=== PATIENT | female | born 1945 | race Caucasian/White ===

== ENCOUNTER 2017-02-11 08:16 | Inpatient (IN) | payer OTHER ==
[~2017-02-11] VITALS: Ht 153.7 cm; Wt 90.7 kg
[2017-02-11] MEDS ORDERED: LEVEMIR SC (08:53)
[2017-02-11] MEDS ORDERED: GLIM4TAB PO (08:53)
[2017-02-11] MEDS ORDERED: METF-316 PO (08:53)
[2017-02-11] MEDS ORDERED: SIMV40TA96 PO (08:53)
[2017-02-11] MEDS ORDERED: GABA-339 PO (08:56)
[2017-02-11] MEDS ORDERED: DULO60CA PO ×2 (08:56→08:58)
[2017-02-11] MEDS ORDERED: LISI-275 PO (08:56)
[2017-02-11] MEDS ORDERED: FURO40TA PO (08:56)
[2017-02-11] MEDS ORDERED: MIRA25TA PO (08:56)
[2017-02-11] MEDS ORDERED: ACE3T PO (08:56)
[2017-02-11] MEDS ORDERED: POTA10TA51 PO (08:56)
[2017-02-11] MEDS ORDERED: RIZA10TA24 PO (08:58)
[2017-02-11] MEDS ORDERED: TOPI50TA53 PO (08:58)
[2017-02-11] MEDS ORDERED: ASPI-231 PO (08:59)
[2017-02-11] MEDS ORDERED: ANAS1TAB6 PO (08:59)
[2017-02-11] MEDS ORDERED: LATA0.0015 EACHEYE (08:59)
[2017-02-11] MEDS ORDERED: SODIUM CHLORIDE 0.9% 1,000 ML IV ONE (09:00)
[2017-02-11] MEDS ORDERED: ONDANSETRON HCL 4 MG/2 ML VIAL ONE (09:32)
[2017-02-11 09:41] LABS: Basophils # (auto) 0 uL; Basophils % (auto) 0.2 % (0.0-2.0); Eosinophils # (auto) 0.1 uL; Eosinophils % (auto) 0.6 % (0.0-7.0); Hematocrit 37.1 % (36.0-46.0); Hemoglobin 12.3 g/dL (12.2-16.2); Lymphocytes # (auto) 2.5 uL; Lymphocytes % (auto) 20.8 % (10.0-50.0); Mean Corpuscular Hemoglobin 31.4 pg (28.0-32.0); Mean Corpuscular Hgb Conc. 33.1 g/dL (32.0-36.0); Mean Corpuscular Volume 94.9 fL (80.0-100.0); Mean Platelet Volume 7.8 fL (7.4-10.4); Monocytes # (auto) 0.6 uL; Monocytes % (auto) 4.6 % (0.0-12.0); Neutrophils % (auto) 73.8 % (37.0-80.0); Platelet Count (auto) 307 10^3/uL (140-450); Red Cell Distribution Width 15.8 % (11.6-16.0); White Blood Cell 12.2 10^3/uL (4.4-10.8)
[2017-02-11] MEDS ORDERED: MORPHINE SULFATE 4 MG/ML SYRG IV ONE (09:45)
[2017-02-11 09:52] LABS: INR 0.95 (0.9-1.15); Partial Thromboplastin Time 23.1 sec (22.64-33.71); Prothrombin Time 10.4 sec (9.37-12.3)
[2017-02-11] MEDS ORDERED: ONDANSETRON HCL 4 MG/2 ML VIAL IV ONE (10:00)
[2017-02-11 10:08] LABS: Albumin 2.8 g/dL (3.4-5.0); Alkaline Phosphatase 73 U/L (45-117); Anion Gap 9 (5-15); Aspartate Aminotransferase 28 U/L (15-37); BUN/Creatinine Ratio 11.9; Bilirubin, Total 0.3 mg/dL (0.2-1.0); Blood Urea Nitrogen 13 mg/dL (7-18); Calcium 8.1 mg/dL (8.5-10.1); Carbon Dioxide 23 mmol/L (21-32); Chloride 116 mmol/L (98-107); GFR African American 63 mL/min; GFR Non-African American 52 mL/min; Potassium 3.1 mmol/L (3.5-5.1); Sodium 148 mmol/L (136-145); Total Protein 6.4 g/dL (6.4-8.2)
[2017-02-11 10:12] LABS: Glucose 48 mg/dL (74-106)
[2017-02-11 10:33] LABS: B-Type Natriuretic Peptide 90.32 pg/mL (0-100)
[2017-02-11 10:34] LABS: Temperature: 24.6 C (20.0-25.0)
[2017-02-11] MEDS ORDERED: HYDROmorphone HCL 2 MG/ML VL IV ONE (11:45)
[2017-02-11] MEDS ORDERED: DEXTROSE (50%) 50ML SYRG IV PRN (13:45)
[2017-02-11] MEDS ORDERED: POTASSIUM CHLORIDE 8 MEQ TAB PO ONE (13:45)
[2017-02-11] MEDS: SODIUM CHLOR 0.9% PF (SALINE LOCK) 10ML VIAL IV SCH (13:57)
[2017-02-11] MEDS ORDERED: ONDANSETRON HCL 4 MG/2 ML VIAL IV PRN (14:00)
[2017-02-11] MEDS ORDERED: ACETAMINOPHEN 325 MG TAB PO PRN (14:00)
[2017-02-11] MEDS ORDERED: DOCUSATE SOD 100 MG CAP PO PRN (14:00)
[2017-02-11] MEDS ORDERED: TEMAZEPAM 15 MG CAP PO PRN (14:00)
[2017-02-11] MEDS: FAMOTIDINE 20 MG TAB PO SCH ×2 (14:09→22:00)
[2017-02-11] MEDS: MULTIPLE VITAMIN TAB PO SCH (14:15)
[2017-02-11] MEDS: MORPHINE SULF INJ 2 MG/ML SYRINGE 1ML IV PRN ×2 (14:18→20:51)
[2017-02-11] MEDS ORDERED: RIZATRIPTAN 10MG PO PRN (17:00)
[2017-02-11] MEDS ORDERED: ACETAMINOPHEN/CODEINE#3 (300/30mg) TAB PO PRN (17:00)
[2017-02-11] MEDS ORDERED: FUROSEMIDE 40 MG TAB PO ONE (17:15)
[2017-02-11] MEDS ORDERED: LISINOPRIL 5 MG TAB PO ONE (17:15)
[2017-02-11] MEDS ORDERED: POTASSIUM CHL 20 Meq TABLET PO ONE (17:15)
[2017-02-11] MEDS ORDERED: DULoxetine HCL 30 MG CAP PO ONE (17:15)
[2017-02-11] MEDS ORDERED: ASCORBIC ACID 500 MG TAB PO ONE (17:15)
[2017-02-11] MEDS ORDERED: CHOLECALCIFEROL (VITD3) 1,000 UNIT TAB PO ONE (17:15)
[2017-02-11] MEDS: HYDROcodone-ACET 5/325MG TAB PO PRN (17:18)
[2017-02-11] MEDS: ACCU-CHEK COMFORT CURVE STRIP VI SCH ×2 (17:25→22:00)
[2017-02-11] MEDS: InsuLIN REG 1unit/0.01ml Soln (100units/ml) SC SCH ×2 (17:29→22:00)
[2017-02-11] MEDS: prednisoLONE ACETATE 1% OPTH SUSP 5ML EACHEYE SCH ×2 (18:00→22:00)
[2017-02-11] MEDS: OFLOXACIN 0.3% EACHEYE SCH ×2 (18:00→22:00)
[2017-02-11] MEDS: OPTH EACHEYE SCH ×2 (18:00→22:00)
[2017-02-11 18:40] VITALS: BP 108/63
[2017-02-11 22:00] VITALS: BP 105/55
[2017-02-11] MEDS ORDERED: LATANOPROST 0.005 % OPTH(EYE) SOL 2.5ML EACHEYE SCH (22:00)
[2017-02-11] MEDS ORDERED: ATORVASTATIN 20 MG TAB PO SCH (22:00)
[2017-02-11] MEDS: FEXOFENADINE HCL 60 MG TAB PO SCH (22:00)
[2017-02-11] MEDS: TOPIRAMATE 25 MG TAB PO SCH (22:00)
[2017-02-11] MEDS: CYCLOPENTOLATE HCL 1% OPTH(EYE) SOL 2ML EACHEYE SCH (22:00)
[2017-02-11] MEDS: INSULIN DETEMIR(LEVEMIR) 1unit/0.01ml Soln (100units/ml) SC SCH (22:00)
[2017-02-11] MEDS: GABAPENTIN 400 MG CAP PO SCH (23:31)
[2017-02-12] MEDS: prednisoLONE ACETATE 1% OPTH SUSP 5ML EACHEYE SCH ×5 (02:00→18:00)
[2017-02-12 05:00] VITALS: BP 119/68
[2017-02-12] MEDS: GABAPENTIN 400 MG CAP PO SCH ×2 (05:57→13:34)
[2017-02-12] MEDS: SODIUM CHLOR 0.9% PF (SALINE LOCK) 10ML VIAL IV SCH ×3 (05:57→13:34)
[2017-02-12] MEDS: InsuLIN REG 1unit/0.01ml Soln (100units/ml) SC SCH ×3 (05:58→17:00)
[2017-02-12] MEDS: INSULIN DETEMIR(LEVEMIR) 1unit/0.01ml Soln (100units/ml) SC SCH (05:58)
[2017-02-12] MEDS: CYCLOPENTOLATE HCL 1% OPTH(EYE) SOL 2ML EACHEYE SCH ×2 (06:26→13:34)
[2017-02-12] MEDS: OFLOXACIN 0.3% EACHEYE SCH ×3 (06:26→18:00)
[2017-02-12] MEDS: OPTH EACHEYE SCH ×3 (06:26→18:00)
[2017-02-12] MEDS: ACCU-CHEK COMFORT CURVE STRIP VI SCH ×3 (06:26→17:00)
[2017-02-12] MEDS ORDERED: GLIMEPIRIDE 2 MG TAB PO SCH (07:00)
[2017-02-12 07:39] LABS: Basophils # (auto) 0 uL; Basophils % (auto) 0.3 % (0.0-2.0); Eosinophils # (auto) 0.1 uL; Eosinophils % (auto) 0.6 % (0.0-7.0); Hemoglobin 10.9 g/dL (12.2-16.2); Lymphocytes # (auto) 1.9 uL; Lymphocytes % (auto) 17.4 % (10.0-50.0); Mean Corpuscular Hemoglobin 31.3 pg (28.0-32.0); Mean Corpuscular Hgb Conc. 33.1 g/dL (32.0-36.0); Mean Corpuscular Volume 94.5 fL (80.0-100.0); Mean Platelet Volume 8.1 fL (7.4-10.4); Monocytes # (auto) 0.6 uL; Monocytes % (auto) 5.8 % (0.0-12.0); Neutrophils # (auto) 8.3 uL; Neutrophils % (auto) 75.9 % (37.0-80.0); Platelet Count (auto) 285 10^3/uL (140-450); Red Cell Distribution Width 15.9 % (11.6-16.0)
[2017-02-12 07:56] LABS: Albumin 2.5 g/dL (3.4-5.0); BUN/Creatinine Ratio 16.9; Bilirubin, Total 0.4 mg/dL (0.2-1.0); Calcium 7.6 mg/dL (8.5-10.1); Total Protein 5.7 g/dL (6.4-8.2)
[2017-02-12 07:58] LABS: Potassium 2.6 mmol/L (3.5-5.1)
[2017-02-12 09:00] VITALS: BP 132/71
[2017-02-12] MEDS ORDERED: ASCORBIC ACID 500 MG TAB PO SCH (10:00)
[2017-02-12] MEDS ORDERED: MYRBETRIQ 25MG PO SCH (10:00)
[2017-02-12] MEDS ORDERED: LISINOPRIL 5 MG TAB PO SCH (10:00)
[2017-02-12] MEDS ORDERED: CHOLECALCIFEROL (VITD3) 1,000 UNIT TAB PO SCH (10:00)
[2017-02-12] MEDS ORDERED: CHONDROITIN PO SCH (10:00)
[2017-02-12] MEDS ORDERED: ANASTROZOLE 1MG PO SCH (10:00)
[2017-02-12] MEDS ORDERED: GLUCOSAMINE PO SCH (10:00)
[2017-02-12] MEDS ORDERED: POTASSIUM CHL 20 Meq TABLET PO SCH (10:00)
[2017-02-12] MEDS: TOPIRAMATE 25 MG TAB PO SCH (10:00)
[2017-02-12] MEDS ORDERED: FUROSEMIDE 40 MG TAB PO SCH (10:00)
[2017-02-12] MEDS ORDERED: DULoxetine HCL 30 MG CAP PO SCH (10:00)
[2017-02-12] MEDS ORDERED: POTASSIUM CHL 20 Meq TABLET PO ONE (10:15)
[2017-02-12] MEDS: MORPHINE SULF INJ 2 MG/ML SYRINGE 1ML IV PRN (10:26)
[2017-02-12] MEDS: MULTIPLE VITAMIN TAB PO SCH (10:30)
[2017-02-12] MEDS: FEXOFENADINE HCL 60 MG TAB PO SCH (10:33)
[2017-02-12] MEDS: FAMOTIDINE 20 MG TAB PO SCH (10:33)
[2017-02-12 13:00] VITALS: BP 139/68
[2017-02-12] MEDS: HYDROcodone-ACET 5/325MG TAB PO PRN (13:39)
[2017-02-12 18:06] VITALS: BP 116/81
== END 2017-02-12 18:55 | DRG 562 ==
LOC: EDBD 08:16 → ER 08:18 → OVERFLOW 08:19 → EAST 15:41
PROVIDERS: ADMIT Internal Medicine; ATTEND Internal Medicine Geriatric Medicine
DX: S42.251A Displaced fracture of greater tuberosity of right humerus, initial encounter for closed fracture (principal); E43 Unspecified severe protein-calorie malnutrition; E87.0 Hyperosmolality and hypernatremia; I13.0 Hypertensive heart and chronic kidney disease with heart failure and stage 1 through stage 4 chronic kidney disease, or unspecified chronic kidney disease; I50.42 Chronic combined systolic (congestive) and diastolic (congestive) heart failure; E10.22 Type 1 diabetes mellitus with diabetic chronic kidney disease; E66.9 Obesity, unspecified; E78.5 Hyperlipidemia, unspecified; E83.51 Hypocalcemia; G43.909 Migraine, unspecified, not intractable, without status migrainosus; E87.6 Hypokalemia; N18.3 Chronic kidney disease, stage 3 (moderate); W01.0XXA Fall on same level from slipping, tripping and stumbling without subsequent striking against object, initial encounter; Z83.3 Family history of diabetes mellitus; Z85.3 Personal history of malignant neoplasm of breast; Y93.89 Activity, other specified; Y92.89 Other specified places as the place of occurrence of the external cause; Z79.899 Other long term (current) drug therapy; Z79.4 Long term (current) use of insulin; Z79.82 Long term (current) use of aspirin; Z68.38 Body mass index [BMI] 38.0-38.9, adult
CPT/HCPCS: 36415; 71010; 73030; 73080; 80053; 82962; 83036; 83880; 84443; 84484; 85025; 85610; 85730; 96361; 96372; 96374; 96375; 96376; J1815; J2405

== ENCOUNTER 2025-05-31 15:28 | Emergency (ER) | payer OTHER ==
[~2025-05-31] VITALS: Ht 162.6 cm; Wt 77.1 kg
[~2025-05-31 15:28] MED LIST: ACE3T PO; ANAS1TAB7 PO; ASPI1TAB20 PO; DULO60CA41 PO; FURO1TAB31 PO; GABA-339 PO; GLIM4TAB PO; LATA0.008 EACHEYE; LEVEMIR SC; LISI-275 PO; METF-372 PO; MIRA25TA PO; POTA-36 PO; RIZA10TA50 PO; SIMV40TA42 PO; TOPI50TA53 PO
--- NOTE | 2025-05-31 16:07 | ED.PDOC ---
SOB-HPI HPI Comments 79-year-old female with a history of RA, breast cancer in remission, CKD, dyslipidemia, hypertension and migraines brought in by family complaining of inability to breathe through her nose for the past 2 days. Patient states she feels congested, however has not been able to blow her nose or breathe through it. She states when breathing through her mouth she does not feel short of breath. She denies any fever, cough, chest pain or worsening edema. She does have a frontal headache. 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 History Family History Family History: Unknown Social History Smoker: Non-Smoker Alcohol: Denies ETOH Use Drugs: Denies Drug Use Lives In: Home Constitutional: denies: chills, diaphoresis, fatigue, fever, malaise, sweats, weakness, others EENTM: reports: nose congestion; denies: blurred vision, double vision, ear bleeding, ear discharge, ear drainage, ear pain, ear ringing, eye pain, eye redness, hearing loss, mouth pain, mouth swelling, nasal discharge, nose bleeding, nose pain, photophobia, tearing, throat pain, throat swelling, voice changes, others Respiratory: denies: cough, hemoptysis, orthopnea, SOB at rest, shortness of breath, SOB with excertion, stridor, wheezing, others Cardiovascular: denies: chest pain, dizzy spells, diaphoresis, Dyspnea on exertion, edema, irregular heart beat, left arm pain, lightheadedness, palpitations, PND, syncope, others Gastrointestinal: denies: abdomen distended, abdominal pain, blood streaked bowels, constipated, diarrhea, dysphagia, difficulty swallowing, hematemesis, melena, nausea, poor appetite, poor fluid intake, rectal bleeding, rectal pain, vomiting, others Genitourinary: denies: abnormal vagina bleeding, burning, dyspareunia, dysuria, flank pain, frequency, hematuria, incontinence, pain, , vagina discharge, urgency, others Neurological: denies: dizziness, fainting, headache, left sided numbness, left sided weakness, numbness, paresthesia, pre-existing deficit, right sided numbness, right sided weakness, seizure, speech problems, tingling, tremors, weakness, others Musculoskeletal: denies: back pain, gout, joint pain, joint swelling, muscle pain, muscle stiffness, neck pain, others Integumetry: denies: bruises, change in color, change in hair/nails, dryness, laceration, lesions, lumps, rash, wounds, others Allergic/Immunocompromised: denies: Difficulty Healing, Frequent Infections, Hives, Itching, others Hematologic/Lymphatic: denies: anemia, blood clots, easy bleeding, easy bruising, swollen glands, others Endocrine: denies: excessive hunger, excessive sweating, excessive thirst, excessive urination, flushing, intolerance to cold, intolerance to heat, une xplained weight gain, unexplained weight loss, others Psychiatric: denies: anxiety, bipolar disorder, depression, hopeless, panic disorder, schizophrenia, sleepless, suicidal, others All Other Systems: Reviewed and Negative Physical Exam General Appearance: No Apparent Distress HEENT: Other (Pupils and face symmetric. Moist mucous membranes.) Neck: Full Range of Motion, Normal Inspection Respiratory: Lungs Clear, No Accessory Muscle Use, No Respiratory Distress, Normal Breath Sounds Cardiovascular: No Edema, No JVD, Regular Rate/Rhythm Breast Exam: Deferred Gastrointestinal: Non Tender, Soft Genitalia: Deferred Pelvic: Deferred Rectal: Deferred Extremities: Leg edema, Normal inspection, Normal range of motion, Non-tender, Pedal edema Neurologic: Alert (Oriented x4), Other (Ambulatory) Cerebellar Function: NOT DONE Reflexes: NOT DONE Skin: Dry, Normal Color, Warm Lymphatic: NOT DONE EKG EKG : Comments Sinus rhythm, rate 75, normal intervals, left axis deviation, possible old inferior infarct, nonspecific T change. Was a procedure done? Was a procedure done?: No Differential Dx Differential Diagnosis: Sinusitis, Pharyngitis, URI, Other (CHF) X-Ray, Labs, Meds, VS Vital Signs Date Time Temp Pulse Resp B/P (MAP) Pulse Ox O2 Delivery O2 Flow Rate FiO2 05/31/25 17:27 78 19 95 Room Air 05/31/25 17:27 97.5 78 19 171/88 (115) 95 97.5 05/31/25 15:45 75 05/31/25 15:29 98.3 96 22 184/108 95 98.3 Lab Test 05/31/25 17:46 05/31/25 16:55 Range/Units Troponin I High Sensitivity 8 4 </=34 ng/L White Blood Count 9.2 4.4-10.8 10^3/uL Red Blood Count 4.25 4.0-5.20 10^6/uL Hemoglobin 13.5 12.2-16.2 g/dL Hematocrit 40.6 36.0-46.0 % Mean Corpuscular Volume 95.3 80.0-100.0 fL Mean Corpuscular Hemoglobin 31.8 28.0-32.0 pg Mean Corpuscular Hemoglobin Concent 33.4 32.0-36.0 g/dL Red Cell Distribution Width 15.3 H 11.8-14.3 % Platelet Count 398 140-450 10^3/uL Mean Platelet Volume 6.9 6.9-10.8 fL Neutrophils (%) (Auto) 67.6 37.0-80.0 % Lymphocytes (%) (Auto) 24.8 10.0-50.0 % Monocytes (%) (Auto) 6.5 0.0-12.0 % Eosinophils (%) (Auto) 0.4 0.0-7.0 % Basophils (%) (Auto) 0.7 0.0-2.0 % Neutrophils # (Auto) 6.2 1.6-8.6 10 ^3/uL Lymphocytes # (Auto) 2.3 0.4-5.4 10 ^3/uL Monocytes # (Auto) 0.6 0-1.3 10 ^3/uL Eosinophils # (Auto) 0 0-0.8 10 ^3/uL Basophils # (Auto) 0.1 0-0.2 10 ^3/uL Nucleated Red Blood Cells 0.1 % Sodium Level 142 136-145 mmol/L Potassium Level 3.8 3.5-5.1 mmol/L Chloride Level 106 98-107 mmol/L Carbon Dioxide Level 28 20-31 mmol/L Anion Gap 8 5-15 Blood Urea Nitrogen 13 9-23 mg/dL Creatinine 0.89 0.550-1.02 mg/dL Glomerular Filtration Rate Calc 65 >90 mL/min BUN/Creatinine Ratio 14.6 10.0-20.0 Serum Glucose 96 74-106 mg/dL Calcium Level 9.2 8.7-10.4 mg/dL B-Type Natriuretic Peptide 41.67 0-100 pg/mL PROCEDURE(s): CXRP - CHEST PORTABLE REASON: Diff breathing ORDER NUMBER(s): [id number], ACCESSION NUMBER(s): [id number] EXAM: XY CHEST PORTABLE HISTORY: Diff breathing TECHNIQUE: 1 view of the chest COMPARISON: None FINDINGS/IMPRESSION: LUNGS: Atelectasis in the left lung base with slight elevation of the left hemidiaphragm. MEDIASTINUM: Unremarkable BONES: No acute osseous abnormality. Posttraumatic deformities of bilateral humeral shafts. OTHER: None PROCEDURE(s): HWOCT - HEAD WITHOUT CONTRAST REASON: Headache, nasal congestion, sinus pain, eval for sinusitis ORDER NUMBER(s): [id number], ACCESSION NUMBER(s): [id number] CT HEAD WITHOUT CONTRAST Indication: Headache, nasal congestion, sinus pain, eval for sinusitis EXAM DATE: 05/31/2025 04:34 PM COMPARISON: None TECHNIQUE: CT of the head without intravenous contrast. RADIATION DOSE: CTDIvol: 53. mGy, DLP: 944 mGy*cm FINDINGS: There is no intracranial hemorrhage. There is no extra-axial fluid, mass, mass effect or midline shift. The ventricles are midline and normal in size. Basilar cisterns are patent. Mild periventricular and subcortical white matter chronic microvascular ischemic changes. Mild global cerebral volume loss. Mucosal thickening ethmoids. Mastoids well pneumatized.. Imaged portion of the orbits are unremarkable. IMPRESSION: No intracranial hemorrhage or mass effect. Mild chronic microvascular ischemic changes. Mild ethmoid sinus disease. X-Ray, Labs, Meds, VS Comment 79-year-old female with a history of CKD, breast cancer in remission, dyslipidemia, hypertension and migraines complaining of inability to breathe through her nose. Vitals remarkable for respiratory rate 22, BP 184/108 Exam unremarkable Rhythm strip independently interpreted by me: Sinus rhythm, rate seventy-five, no ectopy. Chest x-ray unremarkable CT head remarkable for ethmoid sinusitis The following was ordered for the patient in the ED: Rocephin 1 g IM, guaifenesin 200 mg p.o. On re-evaluation, patient is not in respiratory distress. Blood pressure is 171/88 and other vitals were stable. Patient appears stable for discharge with close outpatient follow-up with her [facility] doctor. Rx Augmentin, guaifenesin Time of 1ST Reevaluation: 16:30 Reevaluation 1ST: Unchanged Patient Education/Counseling: Diagnosis, Treatment Family Education/Counseling: No Family Present SEPSIS Sepsis Screen Date sepsis recognized/suspect: May 31, 2025 Time Sepsis recognized/suspect: 1529 Recent Procedure: No On Antibiotic Therapy: No Respiratory Rate >20: Yes Heart Rate >90: No Temp<36 C (96.8 F) or >38.3 C: No SBP <90 or MAP <65 mmHG: No New Acute Mental Status Change: No Is the patient on CPAP, BIPAP,: No SEPSIS EXCLUSION NOTE: Sepsis Exclusion Note: Patient presents with SIRS criteria, but the SIRS response is attributed to [nasal congestion ], not sepsis. Sepsis bundle is not initiated at this time, due to this reason. Further management will focus on the treatment of the above condition (s). Physician Orders Chest Portable (05/31/25 16:25) Head Without Contrast (05/31/25 16:25) Vital Signs Date Time Temp Pulse Resp B/P (MAP) Pulse Ox O2 Delivery O2 Flow Rate FiO2 05/31/25 17:27 78 19 95 Room Air 05/31/25 17:27 97.5 78 19 171/88 (115) 95 97.5 05/31/25 15:45 75 05/31/25 15:29 98.3 96 22 184/108 95 98.3 Laboratory Tests Test 05/31/25 16:55 White Blood Count 9.2 10^3/uL (4.4-10.8) Departure 1 Departure Time of Disposition: 19:28 Impression: Primary Impression: Sinusitis Qualified Codes: J01.20 - Acute ethmoidal sinusitis, unspecified Disposition: HOME / SELF CARE / HOMELESS Condition: Stable Additional Instructions: Your blood tests were unremarkable. Chest x-ray was unremarkable. Your CT scan showed you have ethmoid sinusitis, a sinus infection. This is likely the cause of your symptoms. I have prescribed antibiotics and a decongestant. Follow-up with your primary doctor in 1-2 days. Return to ER for persistent or worsening symptoms. I have enclosed your CT report below to show your doctor when you follow-up. [place] [id number] Ph: [phone] DIAGNOSTIC IMAGING Diagnostic Imaging Report : [id number] Signed PATIENT: ERMA TOBAR ACCT: [id number] UNIT: [id number] : 1945 LOC: ER ROOM / BED: / AGE / SEX: 79 / F ADM STATUS: REG ER SERVICE 24 ORDERING PHYSICIAN: PRAKASH GUIDO MD PROCEDURE(s): HWOCT - HEAD WITHOUT CONTRAST REASON: Headache, nasal congestion, sinus pain, eval for sinusitis ORDER NUMBER(s): [id number], ACCESSION NUMBER(s): [id number] CT HEAD WITHOUT CONTRAST Indication: Headache, nasal congestion, sinus pain, eval for sinusitis EXAM DATE: 05/31/2025 04:34 PM COMPARISON: None TECHNIQUE: CT of the head without intravenous contrast. RADIATION DOSE: CTDIvol: 53. mGy, DLP: 944 mGy*cm FINDINGS: There is no intracranial hemorrhage. There is no extra-axial fluid, mass, mass effect or midline shift. The ventricles are midline and normal in size. Basilar cisterns are patent. Mild periventricular and subcortical white matter chronic microvascular ischemic changes. Mild global cerebral volume loss. Mucosal thickening ethmoids. Mastoids well pneumatized.. Imaged portion of the orbits are unremarkable. IMPRESSION: No intracranial hemorrhage or mass effect. Mild chronic microvascular ischemic changes. Mild ethmoid sinus disease. [place] [address] Ph: [phone] DIAGNOSTIC IMAGING Diagnostic Imaging Report : [id number] Signed PATIENT: ERMA TOBAR ACCT: [id number] UNIT: [id number] : 1945 LOC: ER ROOM / BED: / AGE / SEX: 79 / F ADM STATUS: REG ER SERVICE 1625 ORDERING PHYSICIAN: PRAKASH GUIDO MD PROCEDURE(s): CXRP - CHEST PORTABLE REASON: Diff breathing ORDER NUMBER(s): [id number], ACCESSION NUMBER(s): [id number] EXAM: XY CHEST PORTABLE HISTORY: Diff breathing TECHNIQUE: 1 view of the chest COMPARISON: None FINDINGS/IMPRESSION: LUNGS: Atelectasis in the left lung base with slight elevation of the left hemidiaphragm. MEDIASTINUM: Unremarkable BONES: No acute osseous abnormality. Posttraumatic deformities of bilateral humeral shafts. OTHER: None e-Prescriptions Acetaminophen (Tylenol) 325 Mg Cap 650 MG PO Q6HP PRN, #30 CAP Prn pain Prov: PRAKASH GUIDO MD 05/31/25 Guaifenesin (Chest Congestion Relief) 400 Mg Tab 400 MG PO Q4HP PRN, #20 TAB prn congestion Prov: PRAKASH GUIDO MD 05/31/25 Amoxicillin & Pot Clavulanate (AUGMENTIN TABLET) 875 Mg Tb 875 MG PO BID for 10 Days, #20 TAB Prov: PRAKASH GUIDO MD 05/31/25 Discharged With: Relative Critical Care Note Critical Care Time?: No Stability Stability form required: No Heart Score Heart Score: Heart Score Response (Comments) Value History N/A 0 EKG N/A 0 Age N/A 0 Risk Factors N/A 0 Troponin N/A 0 Total 0 I personally scribed for PRAKASH GUIDO MD ([email or web address]) on 05/31/25 at 16:07. Electronically submitted by Carolina Beauchamp ([email or web address]). I personally scribed for PRAKASH GUIDO MD ([email or web address]) on 05/31/25 at 16:08. Electronically submitted by Carolina Beauchamp ([email or web address]). I personally scribed for PRAKASH GUIDO MD ([email or web address]) on 05/31/25 at 17:58. Electronically submitted by Carolina Beauchamp ([employer]). I personally scribed for PRAKASH GUIDO MD ([email or web address]) on 05/31/25 at 17:59. Electronically submitted by Carolina Beauchamp ([email or web address]). PRAKASH GUIDO MD May 31, 2025 16:07
--- NOTE | 2025-05-31 17:08 | DVH ---
EXAM: XY CHEST PORTABLE HISTORY: Diff breathing TECHNIQUE: 1 view of the chest COMPARISON: None FINDINGS/IMPRESSION: LUNGS: Atelectasis in the left lung base with slight elevation of the left hemidiaphragm. MEDIASTINUM: Unremarkable BONES: No acute osseous abnormality. Posttraumatic deformities of bilateral humeral shafts. OTHER: None
[2025-05-31 17:09] LABS: Hematocrit 40.6 % (36.0-46.0); Hemoglobin 13.5 g/dL (12.2-16.2); Mean Corpuscular Hemoglobin 31.8 pg (28.0-32.0); Mean Corpuscular Volume 95.3 fL (80.0-100.0); Nucleated Red Blood Cells % 0.1 %
--- NOTE | 2025-05-31 17:14 | DVH ---
CT HEAD WITHOUT CONTRAST Indication: Headache, nasal congestion, sinus pain, eval for sinusitis EXAM DATE: 05/31/2025 04:34 PM COMPARISON: None TECHNIQUE: CT of the head without intravenous contrast. RADIATION DOSE: CTDIvol: 53. mGy, DLP: 944 mGy*cm FINDINGS: There is no intracranial hemorrhage. There is no extra-axial fluid, mass, mass effect or midline shif t. The ventricles are midline and normal in size. Basilar cisterns are patent. Mild periventricular a nd subcortical white matter chronic microvascular ischemic changes. Mild global cerebral volume loss . Mucosal thickening ethmoids. Mastoids well pneumatized.. Imaged portion of the orbits are unremarkab le. IMPRESSION: No intracranial hemorrhage or mass effect. Mild chronic microvascular ischemic changes. Mild ethmoid sinus disease.
[2025-05-31 17:20] LABS: Chloride 106 mmol/L (98-107); Potassium 3.8 mmol/L (3.5-5.1); Sodium 142 mmol/L (136-145)
[2025-05-31 17:21] LABS: Anion Gap 8 (5-15); Calcium 9.2 mg/dL (8.7-10.4); Carbon Dioxide 28 mmol/L (20-31)
[2025-05-31 17:26] LABS: BUN/Creatinine Ratio 14.6 (10.0-20.0); Blood Urea Nitrogen 13 mg/dL (9-23); Glucose 96 mg/dL (74-106)
--- NOTE | 2025-05-31 17:47 | ECG ---
[facility] Test Date: 2025-05-31 Test Time: 15:45:45 Pat Name: ERMA TOBAR [id number] Room: Gender: F Marketing Operations Assistant: LINDSEY : 1945 Requested By: PRAKASH RIOS Order Number: [id number] Reading MD: Gustavo Jones Measurements Intervals [place] Rate: 75 P: 10 AL: 116 QRS: -17 QRSD: 101 T: -19 QT: 400 QTc: 447 Interpretive Statements Sinus rhythm Borderline short AL interval Probable anterior infarct, age indeterminate Baseline wander in lead(s) V6 Electronically Signed On 06-07-2025 19:01:49 PDT by Gustavo Jones Please click the below link to view image of tracing.
[2025-05-31] MEDS: cefTRIAXone W LIDOCAINE 1 GM IM IM ONE (19:30)
[2025-05-31] MEDS ORDERED: ACET1CAP14 PO (19:35)
[2025-05-31] MEDS ORDERED: AUG875T PO (19:35)
[2025-05-31] MEDS ORDERED: GUAI400T12 PO (19:35)
[2025-05-31] MEDS ORDERED: cefTRIAXone SOD 1,000 MG VL ONE (20:09)
[2025-05-31] MEDS ORDERED: LIDOCAINE 1% HCL (LOCAL ANESTH.) INJ 20ML MDV ONE (20:11)
[2025-05-31 20:15] VITALS: BP 126/86; PULSE 79; RESP 18; TEMP 97.8; O2SAT 98
== END 2025-05-31 20:15 | disposition home or self-care (01) ==
LOC: ER 15:28
DX: J32.9 Chronic sinusitis, unspecified (principal); I13.0 Hypertensive heart and chronic kidney disease with heart failure and stage 1 through stage 4 chronic kidney disease, or unspecified chronic kidney disease; E11.22 Type 2 diabetes mellitus with diabetic chronic kidney disease; N18.9 Chronic kidney disease, unspecified; I50.9 Heart failure, unspecified; E78.5 Hyperlipidemia, unspecified; M19.90 Unspecified osteoarthritis, unspecified site; Z90.13 Acquired absence of bilateral breasts and nipples; Z85.3 Personal history of malignant neoplasm of breast
CPT/HCPCS: 36415; 70450; 71045; 80048; 83880; 84484; 85025; 93005; 96372; 99285; J0696; J2003